=== PATIENT | male | born 1990 | race Caucasian/White ===

== ENCOUNTER → 2020-10-28 | Outpatient (CLI) | payer OTHER ==
[~2020-10-28] MED LIST: IOHEXOL 300 MG/ML 75 ML VIAL. IV ONE
--- NOTE | 2020-10-28 15:36 | RAD ---
CT ORBITS/SELLA WITHOUT AND WITH IV CONTRAST, CT HEAD WITHOUT AND WITH IV CONTRAST Date: 10/28/2020 1:27 PM Clinical Indication: Reason: LOSS OF SIGHT IN RIGHT EYE / Spl. Instructions: / History: Comparison: None. Technique: CT images were obtained of the head and orbits with and without contrast. 50 cc Omnipaque 300 contrast was administered intravenously during the exam. These were viewed on brain and bone win dows. One or more of the following dose reduction techniques were utilized: Automated exposure contro l (AEC), Adjustment of mA and/or kV according to patient size, Use of iterative reconstruction techni que such as ASiR, CT scan done according to ALARA and image gently/image wisely Findings: The brain parenchyma is normal in attenuation. No intra- or extra-axial mass or fluid collection. No acute hemorrhage. The ventricles are normal in size, shape, and morphology. The burnett-white matter gavin ction is normal. The subarachnoid cisterns are patent. The optic nerves are normal in course and caliber. No orbital mass. The extraocular muscles are jagdeep l. The carotid arteries are normal. No suprasellar mass. Globes are normal. The visualized paranasal sinuses are normal. The mastoid air cells are clear. The building construction foreman topogram shows no lytic lesion or fracture. Impression: No orbital mass. No acute intracranial process. Electronically signed by: Gene Fernandez MD (10/28/2020 3:34 PM) [id number]
== END ==
LOC: CT 12:54
PROVIDERS: ATTEND Internal Medicine
DX: H31.8 Other specified disorders of choroid (principal)
CPT/HCPCS: 70470; 70482; Q9967